=== PATIENT | male | born 1970 | race Caucasian/White ===

== ENCOUNTER 2020-07-10 13:24 | Emergency (ER) | payer OTHER, SELFPAY ==
[2020-07-10 13:45] VITALS: BP 148/102; PULSE 90; RESP 20; TEMP 36.2; O2SAT 100
--- NOTE | 2020-07-10 14:05 | ED.URI ---
HPI - URI/Sore Throat General Chief Complaint: Upper Respiratory Infection Stated Complaint: upper respiratory infection Time Seen by Provider: 07/10/20 13:55 Source: patient and RN notes reviewed Mode of arrival: ambulatory Limitations: no limitations History of Present Illness HPI Narrative: Patient presents today with a 6-day history of slight nonproductive cough, nasal congestion, left frontal headache. Believes he has a sinus infection. Denies fever or shortness of breath. No history of asthma or COPD. No known COVID-19 exposure. Patient does smoke. States symptoms are not worsening or improving. States he does wake up in the middle of the night multiple times due to headache and facial pain. He has been taking Robitussin-DM, Claritin, Sudafed, and Tylenol with mild relief. MD elicited complaint: nasal congestion and sinus pain Related Data Allergies Allergy/AdvReac Type Severity Reaction Status Date / Time No Known Allergies Allergy Mild Verified 06/05/19 10:09 Review of Systems Review of Systems: Narrative: CONSTITUTIONAL: Denies body aches, fever, chills, or sweats. EYES: Denies visual changes, redness, or discharge. ENT: Denies rhinorrhea, sore throat, or otalgia.+ Nasal congestion, sinus pressure CARDIOVASCULAR: Denies chest pain, palpitations, or edema. RESPIRATORY: Denies dyspnea.+ Cough GASTROINTESTINAL: Denies abdominal pain, nausea, vomiting, or diarrhea. GENITOURINARY: Denies dysuria or hematuria. SKIN: Denies rash, itching, or wounds. MUSCULOSKELETAL: Denies back pain, joint pain, or myalgia. NEUROLOGIC: Denies numbness, tingling, or weakness. + Headache PSYCH: Denies depression or anxiety. [facility] Past Medical History Medical History Arthritis Carpal tunnel syndrome Surgical History Surgical History History of carpal tunnel surgery of left wrist History of carpal tunnel surgery of right wrist History of repair of left rotator cuff Family History Family History Father Acute myocardial infarction Mother Carcinoma of colon Social History Social History Smoking packs per day: 1 Smoking cigarettes per day: 20.0 Smoking status: Current every day smoker Alcohol intake: current Gender identity (if verbalized by the patient): Male Comments At time of signature, I have reviewed and agree with nursing past medical, surgical, social and family history unless otherwise noted. Please see nursing chart for further information. There is no relevant family history pertinent to the presenting complaint Exam Narrative: Exam Narrative: GENERAL: Well-appearing, well-nourished, and in no acute distress. HEAD: Normocephalic, atraumatic. EYES: EOMI. No redness or drainage. Conjunctivae normal. ENT: Mucous membranes pink and moist. Nares congested. Bilateral swollen and erythematous nasal turbinates with purulent discharge on the left side. Left maxillary sinus tenderness. TMs normal bilaterally. Throat normal. Uvula midline. NECK: Normal AROM. Supple. No lymphadenopathy. CHEST: No respiratory distress. Clear to auscultation. HEART: Regular rate and rhythm. No murmur appreciated. Normal peripheral pulses. EXTREMITIES: Normal range of motion. No edema. SKIN: Warm, dry, no rash. Capillary refill normal. Normal skin turgor. NEURO: No focal deficits. Alert and oriented x3. Gait steady. PSYCH: Normal affect. No signs of depression or anxiety. Course Vital Signs Vital signs: Vital Signs Temperature 97.1 F L 07/10/20 13:45 Pulse Rate 90 07/10/20 13:45 Respiratory Rate 20 07/10/20 13:45 Blood Pressure 148/102 H 07/10/20 13:45 Pulse Oximetry 100 07/10/20 13:45 Temperature 97.1 F L 07/10/20 13:45 Pulse Rate 90 07/10/20 13:45 Respira
== END 2020-07-10 14:10 | disposition home or self-care (01) ==
PROVIDERS: Emergency Provider Nurse Practitioner; PCP Internal Medicine
DX: J01.90 Acute sinusitis, unspecified (principal); Z20.822 Contact with and (suspected) exposure to COVID-19; F17.210 Nicotine dependence, cigarettes, uncomplicated; M19.90 Unspecified osteoarthritis, unspecified site
CPT/HCPCS: 87426; 99213; C9803; G0463

== ENCOUNTER 2022-03-15 11:49 | Emergency (ER) | payer OTHER, SELFPAY ==
--- NOTE | ~2022-03-15 | XR_ITS ---
EXAMINATION: XR chest 2V 03/15/2022 13:00 INDICATION: Cough. Post Covid. PROCEDURE: 2 view chest COMPARISON: 06/02/2019 FINDINGS: The lungs are clear. The cardiomediastinal silhouette is within normal limits. There are no pleural effusions. There is no pneumothorax suspected. IMPRESSION: 1: NO ACUTE CARDIOPULMONARY DISEASE. Reviewed, dictated and finalized at location A.
[2022-03-15 12:03] VITALS: BP 135/93; PULSE 90; RESP 20; TEMP 37.2; O2SAT 99
--- NOTE | 2022-03-15 12:44 | ED.URI ---
HPI - URI/Sore Throat General Chief Complaint: Upper Respiratory Infection Stated Complaint: Cough,Fatigue,Shortness of Breath Time Seen by Provider: 03/15/22 12:44 Source: patient, RN notes reviewed and old records reviewed Mode of arrival: ambulatory Limitations: no limitations History of Present Illness HPI Narrative: 52-year-old male who presents to [facility] with complaints of shortness of breath, cough, and fatigue post COVID. Patient reports that he tested positive for COVID on 03/09/2022 and he received prescription for Paxlovid which he completed. He reports that cough is keeping him up at night and he feels some shortness of breath and remains fatigued post COVID. Patient is daily tobacco user for over 20 years.usually pack per day which patinet has decreased since being ill. Patient denies any fevers, chills or body aches at this time has not taken any OTC cough medications. MD elicited complaint: cough and other (shortness of breath and fatigue) Pertinent past history: other (tobacco abuse, COVID 03/09/2022) Pain scale (0-10): 4 Related Data Allergies Allergy/AdvReac Type Severity Reaction Status Date / Time No Known Allergies Allergy Mild Verified 03/15/22 19:00 Review of Systems Review of Systems: CONSTITUTIONAL: Denies fever, chills, or sweats. EYES: Denies visual changes, redness, or discharge. ENT: Positive for rhinorrhea, congestion, sore throat, or otalgia. CARDIOVASCULAR: Denies chest pain, palpitations, or edema. RESPIRATORY: Positive cough or dyspnea. upper chest discomfort with cough GASTROINTESTINAL: Denies abdominal pain, nausea, vomiting, or diarrhea. GENITOURINARY: Denies dysuria or hematuria. SKIN: Denies rash or itching. MUSCULOSKELETAL: Denies back pain, joint pain, or myalgia. NEUROLOGIC: Denies headache, numbness, or weakness. PSYCHIATRIC: Denies anxiety or depression. All systems reviewed & are unremarkable except as noted in HPI and below PMFSH Past Medical History Medical History (Updated 03/18/22 @ 15:03 by Makayla Garcia NP) Arthritis Carpal tunnel syndrome COVID-19 03/09/2022 History of sinus problem Surgical History Surgical History (Updated 03/18/22 @ 15:04 by Makayla Garcia NP) H/O repair of right rotator cuff History of carpal tunnel surgery of left wrist History of carpal tunnel surgery of right wrist History of repair of left rotator cuff Family History Family History Father Acute myocardial infarction Mother Carcinoma of colon Social History Social History Smoking packs per day: 1 Smoking cigarettes per day: 20.0 Smoking status: Current every day smoker Alcohol intake: current Gender identity (if verbalized by the patient): Male Comments At time of signature, agree with nursing past medical, surgical, social and family history. There is no relevant family history pertinent to the presenting complaint Exam Narrative: GENERAL: Well-appearing, well-nourished, and in no acute distress. HEAD: Normocephalic, atraumatic. EYES: PERRLA and EOMI. ENT: Nares red with clear rhinorrhea no epistaxis. Mucous membranes moist.TM's normal with good light reflex, throat pink with no lesions or exudates, post nasal drainage noted NECK: Supple.no lymphadenopathy CHEST: Clear to auscultation. No respiratory distress.SAO2 99% on room air, harsh cough HEART: Regular rate and rhythm. No murmur heard. Normal peripheral pulses. ABDOMEN: Soft, nontender, nondistended, normal active bowel sounds. EXTREMITIES: Normal range of motion. No edema. SKIN: Warm, dry, no rash. NEURO: No focal deficits. Alert and oriented x3. Course Course Level of Care: Express Care Visit Vital Signs Vital signs: Vital Signs Temperature 37.2 C 03/15/22 12:03 Pulse Rate 90 03/15/22 12:03 Respiratory Rate 20 03/15/22 12:03 Blood Pressure 135/93 H 03/15/22 12:03 Pulse O
== END 2022-03-15 13:40 | disposition home or self-care (01) ==
PROVIDERS: Emergency Provider Registered Nurse; PCP Internal Medicine
DX: R05.1 Acute cough (principal); F17.210 Nicotine dependence, cigarettes, uncomplicated; Z86.16 Personal history of COVID-19
CPT/HCPCS: 71046; 99213; G0463

== ENCOUNTER 2023-04-20 15:05 | Outpatient (CLI) | payer OTHER, SELFPAY ==
[2023-04-20 18:50] LABS: Basophils Percent Auto 0.3 % (0.2-1.2); Eosinophils Absolute Auto 0.2 K/mm3 (0-0.3); Eosinophils Percent Auto 1.5 % (0-4.4); Hematocrit 44.6 % (42.0-52.0); Hemoglobin 14.5 g/dL (14.0-18.0); Immature Granulocyte Absolute 0.04 K/mm3 (0.00-0.031); Immature Granulocyte Percent A 0.3 % (0-0.5); Lymphocytes Absolute Auto 2.12 K/mm3 (0.9-3.2); Mean Corpuscular HGB Conc 32.5 g/dl (32-36); Mean Corpuscular Hemoglobin 31.1 pg (26-34); Mean Corpuscular Volume 95.7 fl (80-100); Mean Platelet Volume 9.6 fl (7.4-10.4); Monocytes Absolute Auto 0.8 K/mm3 (0.1-0.6); Monocytes Percent Auto 6.7 % (2.6-8.5); Neutrophils Absolute Auto 9.2 K/mm3 (1.3-6.7); Neutrophils Percent Auto 74.2 % (45.5-73.1); Platelet Count Result 271 k/mm3 (150-375); Red Blood Count 4.66 M/mm3 (4.6-6.20); White Blood Count 12.5 K/mm3 (4.5-10.0)
[2023-04-20 20:29] LABS: Alanine Aminotransferase 29 U/L (6-50); Albumin Level 4.4 g/dL (3.5-5.1); Alkaline Phosphatase 77 U/L (38-126); Anion Gap 6 mmol/L (8-16); Aspartate Amino Transferase 53 U/L (17-59); Bilirubin,Total 0.5 mg/dL (0.2-1.3); Blood Urea Nitrogen 20 mg/dL (9-20); Calcium 9.6 mg/dL (8.4-10.2); Carbon Dioxide 27 mmol/L (22-30); Chloride 104 mmol/L (98-107); Cholesterol 214 mg/dL (0-200); Estimated Glomerular Filt Rate > 60; Glucose 102 mg/dL (65-110); HDL Direct 39 mg/dL; Potassium 4.4 mmol/L (3.4-5.0); Sodium 137 mmol/L (137-145); Triglycerides 93 mg/dL (<150)
[2023-04-20 20:40] LABS: LDL Cholesterol Direct 136 mg/dL
[2023-04-20 20:59] LABS: Prostate Specific Antigen 0.4 ng/mL (< OR = 4.0)
== END 2023-04-20 15:06 | disposition home or self-care (01) ==
LOC: ANHGOSHLAB 15:07
PROVIDERS: PCP Internal Medicine; Visit Provider Nurse Practitioner
DX: Z13.220 Encounter for screening for lipoid disorders (principal); Z13.29 Encounter for screening for other suspected endocrine disorder; Z12.5 Encounter for screening for malignant neoplasm of prostate
CPT/HCPCS: 36415; 80053; 80061; 84153; 85025; G0103

== ENCOUNTER 2023-09-14 14:49 | Outpatient (CLI) | payer OTHER, SELFPAY ==
--- NOTE | ~2023-09-14 | XR_ITS ---
XR finger 2nd RT min 2V DATE: 09/14/2023 15:11 INDICATION: Dropped steel plate on finger 3 weeks ago TECHNIQUE: 4 views of second digit COMPARISON: None FINDINGS: No fracture or dislocation, periosteal reaction or bone destruction, joint space narrowing, erosive change, radiopaque soft tissue foreign body or subcutaneous emphysema. IMPRESSION: Negative Reviewed, dictated and finalized at location B. IMPRESSION: Negative
== END 2023-09-14 14:50 ==
PROVIDERS: PCP Internal Medicine; Visit Provider Nurse Practitioner
DX: M79.646 Pain in unspecified finger(s) (principal)
CPT/HCPCS: 73140

== ENCOUNTER 2023-12-01 09:44 | Outpatient (CLI) | payer OTHER, SELFPAY ==
[2023-12-01 20:00] LABS: Basophils Absolute Auto 0.1 K/mm3 (0.0-0.1); Basophils Percent Auto 0.3 % (0.2-1.2); Eosinophils Absolute Auto 0.4 K/mm3 (0-0.3); Eosinophils Percent Auto 2.5 % (0-4.4); Hematocrit 48.4 % (42.0-52.0); Hemoglobin 15.7 g/dL (14.0-18.0); Immature Granulocyte Absolute 0.04 K/mm3 (0.00-0.031); Immature Granulocyte Percent A 0.3 % (0-0.5); Lymphocytes Absolute Auto 3.06 K/mm3 (0.9-3.2); Lymphocytes Percent Auto 21.3 % (18.3-44.2); Mean Corpuscular HGB Conc 32.4 g/dl (32-36); Mean Corpuscular Hemoglobin 31.6 pg (26-34); Mean Corpuscular Volume 97.4 fl (80-100); Mean Platelet Volume 9.8 fl (7.4-10.4); Monocytes Percent Auto 6.8 % (2.6-8.5); Neutrophils Absolute Auto 9.9 K/mm3 (1.3-6.7); Neutrophils Percent Auto 68.8 % (45.5-73.1); Platelet Count Result 229 k/mm3 (150-375); Red Blood Count 4.97 M/mm3 (4.6-6.20); Red Cell Distribution Width 13.9 % (11.5-14.5); White Blood Count 14.4 K/mm3 (4.5-10.0)
[2023-12-02 00:14] LABS: Cholesterol 166 mg/dL (0-200); HDL Direct 36 mg/dL; Triglycerides 164 mg/dL (<150)
[2023-12-02 00:25] LABS: LDL Cholesterol Direct 106 mg/dL
== END 2023-12-01 09:45 | disposition home or self-care (01) ==
LOC: ANHGOSHLAB 09:45
PROVIDERS: PCP Nurse Practitioner; Visit Provider Nurse Practitioner
DX: D72.829 Elevated white blood cell count, unspecified (principal); E78.5 Hyperlipidemia, unspecified
CPT/HCPCS: 36415; 80061; 85025

== ENCOUNTER 2023-12-22 08:17 | Outpatient (CLI) | payer OTHER, SELFPAY ==
--- NOTE | ~2023-12-22 | CT_ITS ---
EXAMINATION:CT lung screening DATE: 12/22/2023 08:33 INDICATION: Personal history of nicotine dependence. 30 pack year history. TECHNIQUE: Computed tomography (CT) of the chest was performed without intravenous contrast. Automate d exposure control and iterative reconstruction technique were employed. The dose-length product (DLP ) was 132.25 mGy-cm. COMPARISON: None. FINDINGS: There is mild emphysema. There are are innumerable 1-2 mm nodules in the lungs with an uppe r lobe predominance, likely respiratory bronchiolitis. There is a 4 mm nodule in right lower lobe. Th ere is a 5 mm nodule in right lower lobe. There is a 3 mm nodule in left upper lobe. There is a 5 mm nodule in left lower lobe. No pleural effusion. The heart size is normal. There are coronary artery c alcifications. No pericardial effusion. There is mild bilateral gynecomastia. There is mild thoracic spondylosis. There is mild chronic anterior wedging of multiple vertebral bodies. IMPRESSION: 1. Lung-RADS category 2: Benign appearance or behavior. Continue annual screening with noncontrast lo w-dose chest CT in 12 months. Reviewed, dictated and finalized at location A. IMPRESSION: 1. Lung-RADS category 2: Benign appearance or behavior. Continue annual screeni ng with noncontrast low-dose chest CT in 12 months.
== END 2023-12-22 08:18 ==
PROVIDERS: PCP Nurse Practitioner; Visit Provider Nurse Practitioner
DX: Z12.2 Encounter for screening for malignant neoplasm of respiratory organs (principal); Z87.891 Personal history of nicotine dependence
CPT/HCPCS: 71271

== ENCOUNTER 2024-05-01 08:01 | Emergency (ER) | payer OTHER, SELFPAY ==
--- NOTE | 2024-05-01 08:09 | ED_ITS ---
HPI - URI/Sore Throat General Chief Complaint: Ear Stated Complaint: ear ache Time Seen by Provider: 05/01/24 08:09 Source: patient, RN notes reviewed and old records reviewed Mode of arrival: ambulatory Limitations: no limitations History of Present Illness HPI Narrative: 54-year-old male to Express Care with complaint of left ear discomfort, ringing, decreased hearing for 2 weeks. Patient states that he has to wear foam ear plugs and work and he believes it has caused wax buildup in his ear. Patient reports attempting to remove wax at home yesterday with debrox and Q- tips without success. Patient denies recent illness, sick symptoms, allergies. Patient resting comfortably in exam room in no acute distress. Related Data Home Medications Medication Instructions Recorded Confirmed naproxen 500 mg tablet 500 mg PO BID 05/01/24 05/01/24 varenicline 1 mg tablet 1 mg PO BID 05/01/24 05/01/24 Allergies Allergy/AdvReac Type Severity Reaction Status Date / Time No Known Allergies Allergy Mild Verified 05/01/24 08:13 Review of Systems Review of Systems: All systems reviewed & are unremarkable except as noted in HPI and below Constitutional: Constitutional: Reports no additional constitutional complaints Eyes: Eyes: Reports no additional eye complaints ENT: Reports as per HPI, Denies Normal hearing present ( left), Reports otalgia ( Left fullness) and Reports tinnitus ( left) Cardiovascular: Cardiovascular: Reports no additional cardiovascular complaints, Denies chest pain and Denies dyspnea Respiratory: Respiratory: Reports no additional respiratory complaints, Denies cough and Denies dyspnea Musculoskeletal: Musculoskeletal: Reports no additional musculoskeletal complaints Neurologic: Reports system reviewed and no additional complaints, except as documented Psychiatric: Psychiatric: Reports no additional psychiatric complaints [facility] Past Medical History Medical History Arthritis Carpal tunnel syndrome COVID-19 03/09/2022 Family history of colon cancer in mother History of sinus problem Surgical History Surgical History H/O repair of right rotator cuff History of carpal tunnel surgery of left wrist History of carpal tunnel surgery of right wrist History of repair of left rotator cuff Family History Family History Father Acute myocardial infarction Hypertension Heart disease Mother Carcinoma of colon Cancer Hypertension Cerebrovascular accident Sibling Diabetes mellitus Hypertension Social History Social History Social History: Caffeine-daily Smoking packs per day: 1 Smoking cigarettes per day: 20.0 Years smoked: 40 Smoking pack-years: 40.00 Smoking status: Former smoker Tobacco type: cigarettes Smoking end date: 12/08/23 Alcohol intake: current Drinks per week: 2 Alcohol use details: weekly Substance use: never Substance use type: does not use Lack of Transportation: No Lack of Food: Never True Current Housing: I Have Housing Concerned About Future Housing: No Difficulty Paying Gas/Electric Bills: No Difficulty Paying for Meds: No Currently Unemployed: No Education: High School Diploma/GED Difficulty w/ Childcare or Family Care: YES Living arrangements: with family Additional living arrangements comments: with sp Gender identity (if verbalized by the patient): Male Comments At the time of my signature, I reviewed and agree with the nursing past medical, surgical, social, and family history. There is no relevant family history pertinent to the patient complaint. Exam Const: General: cooperative, healthy appearing, comfortable, no acute distress, well developed, alert and well nourished Nutritional Appearance: well nourished Orientation/consciousness: patient oriented x3 Limitations: no limitations HENMT: Head: normal to inspection Ears: external ears normal and Abnormal EAC present cerumen impaction on the left and excessive cerumen on the right Face/Nose/Sinus: Normal external nose present, Normal nares present, normal facial exam, No erythema and No edema Face and sinus: normal facial exam, no erythema and no edema Mouth: Yes Normal oral and palatal mucosa present Eyes: General: appearance normal, both eyes and all related structures Neck: Neck: normal visual inspection, full ROM and no meningeal signs Chest: Chest palpation & inspection: normal inspection of the chest Resp: Effort & Inspection: normal respiratory effort and able to speak in complete sentences Cardio: Jugular venous distension: no JVD Rate: regular rate Back/Spine/Pelvis: Cervical Spine: cervical ROM normal Skin: General skin exam: normal color, no rashes or lesions noted and turgor normal Neuro: General: patient oriented x3, gait normal, moves all extremities and no meningeal signs Speech: normal speech Gait exam (Neuro): Normal gait present Extrem: General: normal to inspection, full ROM and capillary refill normal Psych: Appearance: grossly normal and well kempt Course Course Emergency Course: Some parts of this dictation were generated by voice recognition software and may contain typographical and/or grammatical inaccuracies. Level of Care: Express Care Visit Vital Signs Vital signs: Vital Signs Temperature 36.2 C L 05/01/24 08:16 Pulse Rate 69 05/01/24 08:16 Respiratory Rate 16 05/01/24 08:16 Blood Pressure 151/89 H 05/01/24 08:16 Pulse Oximetry 99 05/01/24 08:16 Oxygen Delivery Room Air 05/01/24 08:16 Temperature 36.2 C L 05/01/24 08:16 Pulse Rate 69 05/01/24 08:16 Respiratory Rate 16 05/01/24 08:16 Blood Pressure 151/89 H 05/01/24 08:16 Pulse Oximetry 99 05/01/24 08:16 Oxygen Delivery Room Air 05/01/24 08:16 reviewed Procedures Ear Wax Removal Both Ears: Ear Wax Removal Date: 05/01/24 Results: Re-examined: cerumen removed completely ( right ear) and some cerumen remains ( left ear) TM Examination: TM(s) intact, normal appearance ( right) and other ( unable to view left TM due to remaining impaction) Ear Canal Exam: atraumatic Complications: pain Technique: ear canal irrigated and ear canal curetted MDM - URI/Sore Throat MDM Narrative Medical decision making narrative: 54-year-old male to Express Care with complaint of left ear discomfort, ringing, decreased hearing for 2 weeks. Patient states that he has to wear foam ear plugs and work and he believes it has caused wax buildup in his ear. Patient reports attempting to remove wax at home yesterday with debrox and Q- tips without success. Patient denies recent illness, sick symptoms, allergies. Patient resting comfortably in exam room in no acute distress. earwax removal attempted with lighted curette and irrigation. Large amount of impacted wax removed from right ear without complication. Some wax removed from left ear however impaction still remains. Discussed at home treatment and follow-up recommendations with patient. Patient verbalized understanding. Patient is sitting comfortably in exam room nontoxic in appearance. Patient appropriate for outpatient treatment and follow-up. Discharge instructions reviewed with patient, as well as provided in writing per nursing staff. The instructions also include specific and strict return/GO TO THE ER as well as f/u information. All questions have been answered, and the patient deny any further questions with discharge and discharge plan. Some parts of this dictation were generated by voice recognition software and m ay contain typographical and/or grammatical inaccuracies. Differential Diagnosis Differential diagnosis: Likely upper respiratory infection, croup, otitis media, sinusitis, viral infection, bronchitis, influenza and pharyngitis Discharge Plan Discharge Clinical Impression: Impacted cerumen of left ear, Excessive cerumen in right ear canal Patient Disposition: Home, Self-Care Condition: Stable Instructions: [facility] (ED) Additional Instructions: use debrox in left ear per package instructions use prescription drops in right ear as directed please use attached referral information for ENT if needed for new or worsening symptoms please go directly to the emergency department Prescriptions: New ofloxacin 0.3 % drops 10 drp RIGHT EAR BID 14 Days Qty: 10 0RF No Action varenicline 1 mg tablet 1 mg PO BID naproxen 500 mg tablet 500 mg PO BID atorvastatin 10 mg tablet 10 mg PO QHS Qty: 90 0RF Rx Instructions: DUE FOR APPOINTMENT IN MAY Follow-up/Referrals: Kirill Rogers DO [Primary Care Provider] - Stand Alone Forms: Work/School Release IP
[2024-05-01 08:16] VITALS: BP 151/89; PULSE 69; RESP 16; TEMP 36.2; O2SAT 99
== END 2024-05-01 09:00 | disposition home or self-care (01) ==
PROVIDERS: Emergency Provider Nurse Practitioner Family; PCP Internal Medicine
DX: H61.23 Impacted cerumen, bilateral (principal); Z87.891 Personal history of nicotine dependence; M19.90 Unspecified osteoarthritis, unspecified site; Z86.16 Personal history of COVID-19
CPT/HCPCS: 69210; 99213; A9270; G0463

== ENCOUNTER 2024-05-07 02:36 | Day surgery (SDC) | payer OTHER, SELFPAY ==
[2024-04-27 15:47] VITALS: BMI 31.0
[2024-05-07 11:44] VITALS: BP 141/83; PULSE 82; RESP 18; TEMP 36.1; O2SAT 100
[2024-05-07] MEDS: LACTATED RINGERS 1,000 ML 150 ML IV CONT (11:51)
--- NOTE | 2024-05-07 12:20 | WPDANESEPPF ---
Anes - Initial Pre Proc Eval Procedure: Operation Date: 05/07/24 13:00 Proposed Procedures p Colonoscopy - Nick Rosenthal MD Date/Time: 05/07/24 12:20 Surgeon: Nick Rosenthal MD Pre Op Diagnosis: Family history malignant neoplasm of digestive org Patient Data Age: 54 Gender: M Height: 1.75 m Weight: 93 kg Last Vital Signs Temp 36.1 C L 05/07/24 11:44 Pulse 82 05/07/24 11:44 Resp 18 05/07/24 11:44 BP 141/83 H 05/07/24 11:44 Pulse Ox 100 05/07/24 11:44 O2 Del Method Room Air 05/07/24 11:44 Allergies Allergy/AdvReac Type Severity Reaction Status Date / Time No Known Allergies Allergy Mild Verified 05/07/24 11:41 Home Medications Medication Instructions Recorded Confirmed Type atorvastatin 10 mg tablet 10 mg PO QHS #90 tabs 02/28/24 05/07/24 Rx naproxen 500 mg tablet 500 mg PO BID 05/01/24 05/07/24 History ofloxacin 0.3 % ear drops 10 drp RIGHT EAR BID 14 days #10 mL 05/01/24 05/07/24 Rx Patient hx anesthesia problems: none Family hx anesthesia problems: none Results Review: All pre-operative results and documents have been reviewed as part of the pre-operative evaluation. [facility] Past Medical History Medical History Arthritis Carpal tunnel syndrome COVID-19 03/09/2022 Family history of colon cancer in mother History of sinus problem Hyperlipidemia Surgical History Surgical History H/O repair of right rotator cuff History of carpal tunnel surgery of left wrist History of carpal tunnel surgery of right wrist History of repair of left rotator cuff Family History Family History Father Acute myocardial infarction Hypertension Heart disease Mother Carcinoma of colon Cancer Hypertension Cerebrovascular accident Sibling Diabetes mellitus Hypertension Social History Social History Social History: Caffeine-daily Smoking packs per day: 1 Smoking cigarettes per day: 20.0 Years smoked: 40 Smoking pack-years: 40.00 Smoking status: Former smoker Tobacco type: cigarettes Smoking end date: 12/08/23 Alcohol intake: current Drinks per week: 2 Alcohol use details: weekly Substance use: never Substance use type: does not use Lack of Transportation: No Lack of Food: Never True Current Housing: I Have Housing Concerned About Future Housing: No Difficulty Paying Gas/Electric Bills: No Difficulty Paying for Meds: No Currently Unemployed: No Education: High School Diploma/GED Difficulty w/ Childcare or Family Care: YES Living arrangements: with family Additional living arrangements comments: with sp Gender identity (if verbalized by the patient): Male Anes - Eval Final PreProcedure Day of Procedure 05/07/24 12:20 Patient weight: obese Heart: regular rate and rhythm Lungs: clear to auscultation Airway: Mallampati scale class II Neurological: alert and oriented Last oral intake: >/= 8 hours ASA classification: II Emergent: no Anesthetic plan: proceed Anesthesia type and monitoring: general GIVS Results Review: All pre-operative results and documents have been reviewed as part of the pre-operative evaluation. Informed Consent: The patient's anesthetic plan and its attendant risks and benefits were discussed with the patient/family/POA. Questions were solicited and answers provided to the satisfaction of the patient/family/POA.
--- NOTE | 2024-05-07 12:21 | PM.HPGS ---
History of Present Illness History of Present Illness Consent: Risks, benefits, and alternatives have been discussed and questions answered. Patient agrees to proceed with procedure. Chief complaint: Family history malignant neoplasm of digestive org Narrative: Zen Viramontes is a 54 year old male here for first colonoscopy, mother had colon cancer Review of Systems Review of Systems: All systems reviewed & are unremarkable except as noted in HPI and below PMFSH Past Medical History Medical History Arthritis Carpal tunnel syndrome COVID-19 03/09/2022 Family history of colon cancer in mother History of sinus problem Hyperlipidemia Surgical History Surgical History H/O repair of right rotator cuff History of carpal tunnel surgery of left wrist History of carpal tunnel surgery of right wrist History of repair of left rotator cuff Family History Family History Father Acute myocardial infarction Hypertension Heart disease Mother Carcinoma of colon Cancer Hypertension Cerebrovascular accident Sibling Diabetes mellitus Hypertension Social History Social History Social History: Caffeine-daily Smoking packs per day: 1 Smoking cigarettes per day: 20.0 Years smoked: 40 Smoking pack-years: 40.00 Smoking status: Former smoker Tobacco type: cigarettes Smoking end date: 12/08/23 Alcohol intake: current Drinks per week: 2 Alcohol use details: weekly Substance use: never Substance use type: does not use Lack of Transportation: No Lack of Food: Never True Current Housing: I Have Housing Concerned About Future Housing: No Difficulty Paying Gas/Electric Bills: No Difficulty Paying for Meds: No Currently Unemployed: No Education: High School Diploma/GED Difficulty w/ Childcare or Family Care: YES Living arrangements: with family Additional living arrangements comments: with sp Gender identity (if verbalized by the patient): Male Meds Home Medications and Allergies Home Medications Medication Instructions Recorded Confirmed Type atorvastatin 10 mg tablet 10 mg PO QHS #90 tabs 02/28/24 05/07/24 Rx naproxen 500 mg tablet 500 mg PO BID 05/01/24 05/07/24 History ofloxacin 0.3 % ear drops 10 drp RIGHT EAR BID 14 days #10 mL 05/01/24 05/07/24 Rx Allergies Allergy/AdvReac Type Severity Reaction Status Date / Time No Known Allergies Allergy Mild Verified 05/07/24 11:41 Vital Signs Vital Signs - 24 hr 05/07/24 11:44 Temperature 97 F L Pulse Rate 82 Respiratory Rate 18 Blood Pressure 141/83 H Pulse Oximetry 100 Oxygen Delivery Room Air Exam Const: General: comfortable and no acute distress HENMT: Face/Nose/Sinus: Normal nares present Eyes: General: appearance normal, both eyes and all related structures Neck: Neck: no JVD Resp: Auscultation: clear to auscultation bilaterally Cardio: Rate: regular rate Rhythm: regular rhythm GI: Inspection: non-distended GI Palp: Yes Soft to palpation Skin: General skin exam: normal color Neuro: General: gait normal Speech: normal speech Extrem: General: normal to inspection Psych: Mental Status: mental status grossly normal Assessment and Plan Assessment and plan (1) Family history of colon cancer in mother: Code(s): Z80.0 - Family history of malignant neoplasm of digestive organs Status: Acute Assessment and Plan: colonoscopy
[2024-05-07 12:35] VITALS: BP 108/71; PULSE 79; RESP 16; O2SAT 95
[2024-05-07 12:45] VITALS: BP 106/72; PULSE 64; RESP 15; O2SAT 97
[2024-05-07 12:55] VITALS: BP 125/83; PULSE 70; RESP 19; O2SAT 100
== END 2024-05-07 13:05 | disposition home or self-care (01) ==
PROVIDERS: PCP Internal Medicine; Referring Provider Nurse Practitioner; Visit Provider Internal Medicine Gastroenterology
PROC: 0DJD8ZZ Inspection of Lower Intestinal Tract, Via Natural or Artificial Opening Endoscopic (ICD-10-PCS; CPT 45378; principal; 2024-05-07 13:00)
DX: Z12.11 Encounter for screening for malignant neoplasm of colon (principal); Z80.0 Family history of malignant neoplasm of digestive organs; E78.5 Hyperlipidemia, unspecified; Z87.891 Personal history of nicotine dependence; E66.9 Obesity, unspecified; Z68.30 Body mass index [BMI] 30.0-30.9, adult
CPT/HCPCS: 45378; J2704; J7120

== ENCOUNTER 2024-06-18 17:29 | Emergency (ER) | payer OTHER, SELFPAY ==
[2024-06-18 17:45] VITALS: BP 135/88; PULSE 94; RESP 16; TEMP 36.8; O2SAT 98
--- NOTE | 2024-06-18 18:03 | ED.URI ---
HPI - URI/Sore Throat General Chief Complaint: Upper Respiratory Infection Stated Complaint: cough/runny nose Time Seen by Provider: 06/18/24 18:03 Source: patient Mode of arrival: ambulatory Limitations: no limitations History of Present Illness HPI Narrative: 54-year-old male presented for complaint of nasal congestion and cough for 4 days. States he got no sleep last night due to the coughing. Coughing also induced vomiting yesterday. Shortness of breath, wheezing, nausea vomiting diarrhea lethargy. Plans to try garlic/honey/onion remedy. Former smoker. Related Data Home Medications ?Medication ?Instructions ?Recorded ?Confirmed ?Last Taken ?Type naproxen 500 mg tablet 500 mg PO BID 05/01/24 05/07/24 05/05/24 History Allergies Allergy/AdvReac Type Severity Reaction Status Date / Time No Known Allergies Allergy Mild Verified 06/18/24 17:43 Review of Systems Review of Systems: per HPI All systems reviewed & are unremarkable except as noted in HPI and below PMFSH Past Medical History Medical History Family history of colon cancer in mother Hyperlipidemia COVID-19 03/09/2022 History of sinus problem Arthritis Carpal tunnel syndrome Surgical History Surgical History H/O repair of right rotator cuff History of repair of left rotator cuff History of carpal tunnel surgery of right wrist History of carpal tunnel surgery of left wrist Family History Family History Father Acute myocardial infarction Hypertension Heart disease Mother Carcinoma of colon Cancer Hypertension Cerebrovascular accident Sibling Diabetes mellitus Hypertension Social History Social History Social History: Caffeine-daily Smoking packs per day: 1 Smoking cigarettes per day: 20.0 Years smoked: 40 Smoking pack-years: 40.00 Smoking status: Former smoker Tobacco type: cigarettes Smoking end date: 12/08/23 Alcohol intake: current Drinks per week: 2 Alcohol use details: weekly Substance use: never Substance use type: does not use Lack of Transportation: No Lack of Food: Never True Current Housing: I Have Housing Concerned About Future Housing: No Difficulty Paying Gas/Electric Bills: No Difficulty Paying for Meds: No Currently Unemployed: No Education: High School Diploma/GED Difficulty w/ Childcare or Family Care: YES Living arrangements: with family Additional living arrangements comments: with sp Gender identity (if verbalized by the patient): Male Comments At time of signature, I have reviewed and agree with nursing past medical, surgical, social and family history unless otherwise noted. Please see nursing chart for further information. There is no relevant family history pertinent to the presenting complaint Exam Narrative: GENERAL: Well-appearing, in no acute distress. EYES: EOMI. No redness or drainage. Conjunctivae normal. ENT: Mucous membranes pink and moist. rhinorrhea. TMs normal bilaterally. Throat normal. Uvula midline. NECK: Normal AROM. Supple. CHEST: No respiratory distress. Lungs clear to all harris. HEART: Regular rate and rhythm. No murmur appreciated. SKIN: Warm, dry, Capillary refill normal. Normal skin turgor. NEURO: Alert and oriented x3. Gait steady. PSYCH: Normal affect. Course Course Emergency Course: Patient is aware of diagnosis, understands and agrees to treatment plan. Anticipatory guidance given. Patient agrees to follow-up as directed and is aware of reasons to seek care at the emergency department. Portions of this record may have been created with voice recognition software Level of Care: Express Care Visit Vital Signs Vital signs: Vital Signs Temperature 98.2 F 06/18/24 17:45 Pulse Rate 94 06/18/24 17:45 Respiratory Rate 16 06/18/24 17:45 Blood Pressure 135/88 06/18/24 17:45 Pulse Oximetry 98 06/18/24 17:45 Oxygen Delivery Room Air 06/18/24 17:45 Temperature 98.2 F 06/18/24 17:45 Pulse Rate 94 06/18/24 17:45 Respiratory Rate 16 06/18/24 17:45 Blood Pressure 135/88 06/18/24 17:45 Pulse Oximetry 98 06/18/24 17:45 Oxygen Delivery Room Air 06/18/24 17:45 MDM - URI/Sore Throat MDM Narrative Medical decision making narrative: Discussed physical exam findings. Advised supportive measures and signs/symptoms to go to the ER. Pt is appropriate for outpt treatment and f/u. Differential Diagnosis Differential diagnosis: Likely upper respiratory infection, otitis media, sinusitis, viral infection, bronchitis, influenza and other Discharge Plan Discharge Clinical Impression: Acute bronchitis Qualifiers: Bronchitis organism: unspecified organism Qualified Code(s): J20.9 - Acute bronchitis, unspecified Patient Disposition: Home, Self-Care Condition: Stable Instructions: Antibiotic Form, Acute Bronchitis (ED) Additional Instructions: Acute bronchitis can be contagious because it is usually caused by infection with a virus or bacteria. It is usually for a few days but you can be contagious for up to one week. Avoid crowds until you do not have a fever and symptoms are improved Take medication as directed Recommendations: Flonase spray and Zyrtec (or Claritin/Irais) Prescribed Cough syrup may cause drowsiness; avoid driving or take it at night time. Tylenol 1000mg every 8 hours as needed for pain Symptomatic treatment includes: rest, fluids, and increase humidity of the air at home. If no improvement or symptoms worsen after 3-5 days of the above treatments, you can start the antibiotic Follow up with your primary care provider as needed in 1 week Go to the ER for worsening symptoms or concerns Patient Language: Chinese Prescriptions: New benzonatate 200 mg capsule 200 mg PO TID PRN (Reason: cough) Qty: 20 0RF codeine-guaifenesin [Guaifenesin AC] 10-100 mg/5 mL liquid 10 ml PO Q8H PRN (Reason: cough) Qty: 120 0RF prednisone 50 mg tablet 50 mg PO DAILY Qty: 5 0RF amoxicillin-pot clavulanate 875-125 mg tablet 1 tablet PO Q12H 7 Days Qty: 14 0RF No Action naproxen 500 mg tablet 500 mg PO BID ofloxacin 0.3 % drops 10 drp RIGHT EAR BID 14 Days Qty: 10 0RF atorvastatin 10 mg tablet 10 mg PO QHS Qty: 90 0RF Rx Instructions: DUE FOR APPOINTMENT IN MAY Follow-up/Referrals: Kirill Rogers DO [Primary Care Provider] -
[2024-06-18 18:06] LABS: EDCOVIDSCREEN Negative (Negative); EDINFLUASCREEN Negative (Negative); EDINFLUBSCREEN Negative (Negative)
== END 2024-06-18 18:15 | disposition home or self-care (01) ==
PROVIDERS: Emergency Provider Nurse Practitioner Family; PCP Internal Medicine
DX: J20.9 Acute bronchitis, unspecified (principal); E78.5 Hyperlipidemia, unspecified; Z87.891 Personal history of nicotine dependence; Z20.822 Contact with and (suspected) exposure to COVID-19
CPT/HCPCS: 87426; 87804; 99213; G0463

== ENCOUNTER 2024-07-23 08:19 | Emergency (ER) | payer OTHER, SELFPAY ==
--- OUTSIDE RECORDS SUMMARY | 2024-07-23 08:28 | XMS_ITS | Data Portability ---
Author Organization [facility], Main Office Address [address] [place] [address] Assessment No assessment recorded. Plan of Treatment Reminders Order Date Submit Date Provider Last Modified By Organization Details Last Modified Time Details Appointments None recorded. Lab None recorded. Referral None recorded. Procedures cerumen removal (PROC) 024 024 Not available 4 09:25:04 Surgeries None recorded. Imaging None recorded. Medication Orders None recorded. Patient TargetsNo targets recorded. Patient InstructionsNo instructions recorded. Reason for Referral None Reported. Problems Name Problem SNOMED Code Status Onset Date Resolution Date Notes Provider Name and Address Organization Details Recorded Time Impacted cerumen in left ear 071760041190336 1 Active 2023 Nathalia Owens, DELICATESSEN DEPARTMENT MANAGER [address], [place], [address] [facility] 4 15:34:49 Problem Notes None recorded. Medical Equipment None Reported. Allergies No known drug allergies Medications Name Sig Start Date Stop Date Status Note LastModified by Organization Details LastModified Time atorvastat in 10 mg tablet TAKE 1 TABLET BY MOUTH EVERY DAY AT BEDTIME active Not Available Not Available No t Available azithromyc in 250 mg tablet FOLLOW PACKAGE DIRECTION S 05/03 completed Not Available Not Available Not Available ofloxacin 0.3 % ear drops INSTILL 10 DROPPERFU L TO RIGHT EAR TWICE DAILY FOR 14 DAYS active Not Available Not Available No t Available fluticason e propionate 50 mcg/actuat ion nasal spray,susp ension SHAKE LIQUID AND USE 1 TO 2 SPRAYS IN EACH NOSTRIL TWICE DAILY active Not Available Not Available No t Available naproxen 500 mg tablet TAKE 1 TABLET BY MOUTH TWICE DAILY active Not Available Not Available No t Available Debrox active TWICE A DAY Not Available Not Available Not Available vareniclin e tartrate 1 mg tablet TAKE 1 TABLET BY MOUTH TWICE DAILY active Not Available Not Available No t Available vareniclin e tartrate 0.5 mg (11)-1 mg (42) tablets in a dose pack FOLLOW PACKAGE DIRECTION S active Not Available Not Available No t Available Vitals Date Recorded Body weight Body mass index (BMI) Body height Body temperature Provider Name and Address Organization Details Last Updated DateTime 05/03/2024 03569.36 g 29.2 kg/m2 182.88 cm 98.1 [degF] Nathalia Gaytan RN [facility] [employer] 05/03/2024 15:09:30 Social History Question Answer Notes LastModified by Organizat ion Details LastModified Time Tobacco Smoking Status Former Smoker Nathalia Gaytan RN null, [facility] [employer] 05/03/2024 15:07:29 What Is Your Level Of Alcohol Consumption? Occasional Information not available 05/03/2024 When Did You Quit Smoking? 1-5yearssinbertoa shantanu Information not available 05/03/2024 How Many Years Have You Smoked Tobacco? 40 Information not available 05/03/2024 Sex: Unknown Functional Status None recorded. Mental Status None recorded. Family History Nothing Reported Notes:NO ENT Medical History Condition Response NO SIGNIFICANT PAST MEDICAL HISTORY Y Past Encounters Encounter ID Performer Location Encounter Start Date Encounter Closed Date Diagnosis/Indication Diagnosis SNOMED-CT Code Diagnosis ICD10 Code Diagnosis Note [id number] VALERIE Brown [facility] [place] [address] [place] [address] 05/03/2024 14:38:40 05/03/2024 15:35:51 Impacted cerumen in left ear 4169288876 [id number] H61.22 cerumen impaction of the left ear successful ly removed with lavage. Health Concerns Section Related Observation LastModified by Organization Detai ls LastModified Time None Recorded Concern Status LastModified by Organization Details LastModified Time None Recorded Advance Directives Directive None Recorded Payers None recorded. Notes Date Note Type Note Provider Name and Address Organization Details Recorded Time 05/03/2024 text/html THIS PATIENT HAS NO SIGNIFICANT PAST MEDICAL HISTORY. HE PRESENTS TO THE OFFICE WITH A COMPLAINT OF LEFT OTALGIA AND TINNITUS ONSET APPROXIMATELY ONE-WEEK AGO. HE HAS PRESENTED TO AN URGENT CARE AND HIS PRIMARY WHO HAVE HAD FAILED ATTEMPTS AT REMOVING CERUMEN TO THE AFFECTED EAR. HE STATES THAT HE HAS BEEN USING DEBROX DAILY. Nathalia Owens, DELICATESSEN DEPARTMENT MANAGER [address] [facility], [place], [address], [place] [facility] 05/03/2024 15:35:09
--- OUTSIDE RECORDS SUMMARY | 2024-07-23 08:28 | XMS_ITS | Clinical Summary ---
Author Organization [facility] Address [address] [place] [address] Care Team Providers Care Engineering Analyst Name Role Phone Kirill Rogers DO Primary Care Provider [phone]- [phone] Allergies No known active allergies Medications nabumetone (RELAFEN) 500 mg tabletIndicatio ns:arthritis Take 500 mg by mouth every morning Active zinc 50 mg tabletIndicatio ns:supplement Take 1 tablet by mouth every morning Active MULTIVITAMIN ORALIndications :supplement Take 1 tablet by mouth every morning Active ascorbic acid (ascorbic acid with yogi hips) 500 mg tablet,chewable Indications:sup plement Take 500 mg by mouth every morning Active oxyCODONE (ROXICODONE) 5 mg immediate release tabletIndicatio ns:Pain TAKE 1-2 TABLETS EVERY 4-6 HOURS NEEDED FOR PAIN 40 tablet 02/22/2020 Active hydrOXYzine (VISTARIL) 50 mg capsule Take 1 capsule (50 mg total) by mouth 3 (three) times a day as needed for itching 30 capsule 02/22/2020 Active Active Problems Problem Noted Date Diagnosed Date Impingement syndrome of right shoulder 0 Overview (01/03/2020): Added automatically from request for surgery [id number] Complete tear of left rotator cuff 12/07/2018 Overview (12/07/2018): Added automatically from request for surgery [id number] Surgical History Surgery Date Site/Laterality Comments CARPAL TUNNEL RELEASE 1989' Bilateral SHOULDER SURGERY 06/27/2018 - 06/26/2019 Left Medical History Medical History Date Comments Arthritis wrists bilateral Social History Tobacco Use Types Packs/Day Years Used Date Smoking Tobacco: Every Day Cigarettes 1 39.1 Started: 1985 Smokeless Tobacco: Never Alcohol Use Standard Drinks/Week Comments Yes 7 (1 standard drink = 0.6 oz pur e alcohol) Personal Safety Answer Date Recorded Getting School Help Needed Not on file 08/15 Sex and Gender Information Value Date Recorded Sex Assigned at Not on file Legal Sex Male 2:59 PM CDT Gender Identity Not on file Sexual Orientation Not on file Obstetrics History Last Filed Vital Signs Vital Sign Reading Time Taken Comments Blood Pressure 118/79 02/18/2020 10:00 AM CDT Pulse 62 02/18/2020 10:10 AM CDT Temperature 36.1 ??C (97 ??F) 02/18/2020 8:47 AM CDT Respiratory Rate 20 02/18/2020 10:1 0 AM CDT Oxygen Saturation 95% 02/18/2020 10: 10 AM CDT Inhaled Oxygen Concentration - - Weight 87.4 kg (192 lb 11.2 oz) 02/18/2020 5:38 AM CDT Height 182.9 cm (6') 02/18/2020 5:38 AM CDT Body Mass Index 26.13 02/18/2020 5:38 AM CDT Plan of Treatment Not on file Medical Devices Implanted Type Area Immunology Specialist Device Identifier Shelf Expiration Date Model / Serial / Lot [employer] Ar-1927bct Corkscrew Suturetape 5.5mm 14.7mm Bioabsorbable Full Thread 1.3mm - S00 - [id number] Implanted:Qty: 1 on 01/01/2019 by Swapnil Rivero MD at [facility] [place] Left: Shoulder [employer] 12/25/2019 AR-1927BCT / 00 / [id number] [employer] Ar-2267 Fish Peddler Large Eyelet Pectoralis Button Fixation Latex Free - S00 - [id number] Implanted:Qty: 1 on 01/01/2019 by Swapnil Rivero MD at [facility] [place] Left: Shoulder [employer] 09/25/2023 AR-2267 / 00 / [id number] [employer] Ar-2324 Bcm Swivelock 4.75mm 24.5mm Self Punch Vent Shoulder [place] Suture - S00 - [id number] Implanted:Qty: 1 on 01/01/2019 by Swapnil Rivero MD at [facility] [place] Left: Shoulder [employer] 04/26/2020 AR-2324BCM / 00 / [id number] [employer] Ar-2324 Bcm Swivelock 4.75mm 24.5mm Self Punch Vent Shoulder [place] Suture - S00 - [id number] Implanted:Qty: 1 on 01/01/2019 by Swapnil Rivero MD at [facility] [place] Left: Shoulder [employer] 07/27/2020 AR-2324BCM / 00 / [id number] [employer] Ar-2267 Fish Peddler Large Eyelet Pectoralis Button Fixation Latex Free - S000 - [id number] Implanted:Qty: 1 on 01/01/2019 by Swapnil Rivero MD at [facility] Left: Shoulder [employer] 09/25/2023 AR-2267 / 000 / [id number] [employer] Ar-2324 Bcm Swivelock 4.75mm 24.5mm Self Punch Vent Shoulder [place] Suture - [id number] Implanted:Qty: 1 on 02/18/2020 by Swapnil Rivero MD at [facility] [place] Right: Shoulder [employer] 09/25/2023 AR-2324BCM / / [id number] Insurance [facility] Care Teams Engineering Analyst Relationship Specialty Start Date End Date Kirill Rogers DO PCP - General Internal Medicine 11/06/18
--- OUTSIDE RECORDS SUMMARY | 2024-07-23 08:28 | XMS_ITS | Referral Summary ---
Author Organization [facility] Address [address] [place] [address] Care Team Providers Care Process Area Supervisor Name Role Phone Kirill Rogers DO Primary Care Provider +1- [phone] Allergies No known active allergies Medications nabumetone [...] (01/03/2020): Added automatically from request for surgery [id number] Complete tear of left rotator cuff 12/07/2018 Overview (12/07/2018): Added automatically from request for surgery [id number] Social History Tobacco Use Types Packs/Day Years [...] on file Sexual Orientation Not on file Last Filed Vital Signs Vital Sign Reading [...] on file Medical Devices Implanted Type Area Sales Director Device Identifier Shelf Expiration Date Model / Serial / Lot [employer] Ar-1927bct Corkscrew Suturetape 5.5mm 14.7mm Bioabsorbable Full Thread 1.3mm - S00 - [id number] Implanted:Qty: 1 on 01/01/2019 by Swapnil Rivero MD at [facility] [place] Left: Shoulder [employer] 12/25/2019 AR-1927BCT / 00 / [id number] [employer] Ar-2267 Sap Enterprise Portal Consultant Large Eyelet Pectoralis Button Fixation Latex Free - S00 - [id number] Implanted:Qty: 1 on 01/01/2019 by Swapnil Rivero MD at [facility] Left: Shoulder [employer] 09/25/2023 AR-2267 / 00 / [id number] [employer] Ar-2324 Bcm Swivelock 4.75mm 24.5mm Self Punch Vent Shoulder [place] Suture - S00 - [id number] Implanted:Qty: 1 on 01/01/2019 by Swapnil Rivero MD at [facility] Left: Shoulder [employer] 04/26/2020 AR-2324BCM / 00 / [id number] [employer] Ar-2324 Bcm Swivelock 4.75mm 24.5mm Self Punch Vent Shoulder [place] Suture - S00 - [id number] Implanted:Qty: 1 on 01/01/2019 by Swapnil Rivero MD at [facility] Left: Shoulder [employer] 07/27/2020 AR-2324BCM / 00 / [id number] [employer] Ar-2267 Sap [employer] Portal Consultant Large Eyelet Pectoralis Button Fixation Latex Free - S000 - [id number] Implanted:Qty: 1 on 01/01/2019 by Swapnil Rivero MD at [facility] Left: Shoulder [employer] 09/25/2023 AR-2267 / 000 / [id number] [employer] Ar-2324 Bcm Swivelock 4.75mm 24.5mm Self Punch Vent Shoulder [place] Suture - [id number] Implanted:Qty: 1 on 02/18/2020 by Swapnil Rivero MD at [facility] Right: Shoulder [employer] 09/25/2023 AR-2324BCM / / [id number] Insurance [facility] CMR Care Teams Process Area Supervisor Relationship Specialty Start Date End Date Kirill Rogers DO PCP - General Internal Medicine 11/06/18
[2024-07-23 08:29] VITALS: BP 138/88; PULSE 100; RESP 18; TEMP 36.5; O2SAT 100
--- NOTE | 2024-07-23 08:32 | ED_ITS ---
HPI - URI/Sore Throat General Chief Complaint: Upper Respiratory Infection Stated Complaint: Runn nose, cough Time Seen by Provider: 07/23/24 08:32 Source: patient, RN notes reviewed and old records reviewed Mode of arrival: ambulatory Limitations: no limitations History of Present Illness HPI Narrative: patient presents with complaints of flu-like symptoms that began 3 days ago. He complains of fever, chills, body aches, runny nose, poor sleep, more tired than usual. He has been taking [id number] medications to manage symptoms, states that these are somewhat helpful. He denies any injury or trauma. While he does endorse cough, he denies any wheezing or shortness of breath. He voices no other concerns or complaints today. Related Data Home Medications ?Medication ?Instructions ?Recorded ?Confirmed ?Last Taken ?Type naproxen 500 mg tablet 500 mg PO BID 05/01/24 06/29/24 05/05/24 History Allergies Allergy/AdvReac Type Severity Reaction Status Date / Time No Known Allergies Allergy Mild Verified 07/23/24 08:33 Review of Systems Review of Systems: All systems reviewed & are unremarkable except as noted in HPI and below Constitutional: Constitutional: Reports no additional constitutional complaints, Reports body ache(s), Reports chills, Reports difficulty sleeping, Reports fever(s), Reports headache(s) and Reports night sweats ENT: Reports system reviewed and no additional complaints, except as documented, Reports nasal congestion and Reports nasal discharge Cardiovascular: Cardiovascular: Reports no additional cardiovascular complaints Respiratory: Respiratory: Reports no additional respiratory complaints and Reports cough Gastrointestinal: Gastrointestinal: Reports no additional gastrointestinal complaints PMFSH Past Medical History Medical History Family history of colon cancer in mother Hyperlipidemia COVID-19 03/09/2022 History of sinus problem Arthritis Carpal tunnel syndrome Surgical History Surgical History H/O repair of right rotator cuff History of repair of left rotator cuff History of carpal tunnel surgery of right wrist History of carpal tunnel surgery of left wrist Family History Family History Father Acute myocardial infarction Hypertension Heart disease Mother Carcinoma of colon Cancer Hypertension Cerebrovascular accident Sibling Diabetes mellitus Hypertension Social History Social History Social History: Caffeine-daily Smoking packs per day: 1 Smoking cigarettes per day: 20.0 Years smoked: 40 Smoking pack-years: 40.00 Smoking status: Former smoker Tobacco type: cigarettes Smoking end date: 12/08/23 Alcohol intake: current Drinks per week: 2 Alcohol use details: weekly Substance use: never Substance use type: does not use Lack of Transportation: No Lack of Food: Never True Current Housing: I Have Housing Concerned About Future Housing: No Difficulty Paying Gas/Electric Bills: No Difficulty Paying for Meds: No Currently Unemployed: No Education: High School Diploma/GED Difficulty w/ Childcare or Family Care: YES Living arrangements: with family Additional living arrangements comments: with sp Gender identity (if verbalized by the patient): Male Comments At the time of my signature, I reviewed and agree with the nursing past medical, surgical, social, and family history. There is no relevant family history pertinent to the patient complaint. Exam Const: General: cooperative, no acute distress, alert and awake Orientation/consciousness: oriented to person, oriented to place and oriented to time HENMT: Head: normal to inspection Ears: TM's normal bilaterally Mouth: Yes moist mucous membranes Throat: posterior oropharynx normal Resp: Effort & Inspection: normal respiratory effort and able to speak in complete sentences Auscultation: clear to auscultation bilaterally, no crackles, no rales, no rhonchi and no wheezes Cardio: Palpation: normal PMI Rate: regular rate Rhythm: regular rhythm Heart sounds: S1 normal heart sound present and S2 normal heart sound present Neuro: General: oriented to person, oriented to place and oriented to time Cranial nerves: Yes CN's II-XII intact bilaterally Psych: Appearance: grossly normal Thought process: Normal thought process present Insight: Good insight present (Psych) Judgement: Good judgement present (Psych) Course Course Level of Care: Express Care Visit Vital Signs Vital signs: Vital Signs Temperature 97.7 F 07/23/24 08:29 Pulse Rate 100 07/23/24 08:29 Respiratory Rate 18 07/23/24 08:29 Blood Pressure 138/88 07/23/24 08:29 Pulse Oximetry 100 07/23/24 08:29 Oxygen Delivery Room Air 07/23/24 08:29 Temperature 97.7 F 07/23/24 08:29 Pulse Rate 100 07/23/24 08:29 Respiratory Rate 18 07/23/24 08:29 Blood Pressure 138/88 07/23/24 08:29 Pulse Oximetry 100 07/23/24 08:29 Oxygen Delivery Room Air 07/23/24 08:29 Reviewed MDM - URI/Sore Throat MDM Narrative Medical decision making narrative: Patient in no distress, nontoxic appearing. He refused testing, but symptoms and exam are consistent with influenza. Patient encouraged to continue supportive care measures at home. Work note provided. Discharge instructions reviewed with patient, as well as provided in writing per nursing staff. The instructions also include specific and strict return/GO TO THE ER as well as f/u information. All questions have been answered, and the patient deny any further questions with discharge and discharge plan. Some parts of this dictation were generated by voice recognition software and may contain typographical and/or grammatical inaccuracies. Differential Diagnosis Differential diagnosis: Likely upper respiratory infection, sinusitis, viral infection and influenza Medical Records Attestation: I reviewed the patient's medical records. Discharge Plan Discharge Clinical Impression: Influenza Patient Disposition: Home, Self-Care Condition: Stable Instructions: Antibiotic Form, Influenza (ED) Additional Instructions: take [id number]-[id number] medications to treat your symptoms as needed. Please follow package instructions. Follow-up with primary care provider. Emergency department for any new or worse symptoms Patient Language: Luxembourgish Prescriptions: No Action naproxen 500 mg tablet 500 mg PO BID atorvastatin 10 mg tablet 10 mg PO QHS Qty: 90 3RF Follow-up/Referrals: Kirill Rogers DO [Primary Care Provider] - 2 Weeks Stand Alone Forms: Work/School Release IP Time of Disposition: 08:40
== END 2024-07-23 08:43 | disposition home or self-care (01) ==
PROVIDERS: Emergency Provider Nurse Practitioner Family; PCP Internal Medicine
DX: J11.1 Influenza due to unidentified influenza virus with other respiratory manifestations (principal); Z87.891 Personal history of nicotine dependence; E78.5 Hyperlipidemia, unspecified; M19.90 Unspecified osteoarthritis, unspecified site; Z86.16 Personal history of COVID-19
CPT/HCPCS: 99211; G0463

== ENCOUNTER 2024-12-24 09:49 | Outpatient (CLI) | payer OTHER, SELFPAY ==
--- NOTE | ~2024-12-24 | CT_ITS ---
CT Scan of the Chest without Contrast: Clinical Indication: Lung cancer screening, nicotine dependence Technique: Contiguous sections were acquired throughout the chest without intravenous contrast. Dose reduction technique was used on this scan by utilizing automated exposure control and iterative recon struction technique. The dose-length product (DLP) was 107.34 mGy-cm. COMPARISON: 12/22/2023 Findings: There is no evidence of any significant mediastinal, hilar or axillary lymphadenopathy. The mediastin al soft tissues appear normal. There is no evidence of pleural or pericardial effusion. Stable subcentimeter pleural-based nodule right lower lobe. Probable minimal emphysema. Images through the upper abdomen reveal no abnormalities. Impression: Lung RADS 2: Benign appearance. 12 month follow-up screening CT advised. Reviewed, dictated and finalized at [facility]. Impression: Lung RADS 2: Benign appearance. 12 month follow-up screening CT advised.
== END 2024-12-24 09:50 | disposition home or self-care (01) ==
LOC: GOSHIMG 09:50
PROVIDERS: PCP Internal Medicine; Visit Provider Nurse Practitioner
DX: Z12.2 Encounter for screening for malignant neoplasm of respiratory organs (principal); Z87.891 Personal history of nicotine dependence
CPT/HCPCS: 71271

== ENCOUNTER 2025-04-09 09:09 | Outpatient (CLI) | payer OTHER, SELFPAY ==
--- OUTSIDE RECORDS SUMMARY | 2025-04-09 10:04 | XMS_ITS | Clinical Summary ---
Author Organization [facility] Address [address] [place] [address] Care Team Providers Care Tape Keller Operator Name Role Phone Kirill Rogers DO Primary Care Provider Allergies No known active allergies Medications nabumetone [...] (01/03/2020): Added automatically from request for surgery [id number] Complete tear of left rotator cuff 12/07/2018 Overview (12/07/2018): Added automatically from request for surgery [id number] Surgical History Surgery Date Site/Laterality Comments CARPAL TUNNEL RELEASE 1989' Bilateral SHOULDER SURGERY 06/27/2018 - 06/26/2019 Left Medical History Medical History Date Comments Arthritis wrists bilateral Social History Tobacco Use Types Packs/Day Years Used Date Smoking Tobacco: Every Day Cigarettes 1 39.8 Started: 1985 Smokeless Tobacco: Never Alcohol Use [...] 62 02/18/2020 10:10 AM CDT Temperature 36.1 C (97 F) 02/18/2020 8:47 AM CDT Respiratory Rate 20 02/18/2020 10:1 0 AM CDT Oxygen Saturation 95% 02/18/2020 10: 10 AM CDT Inhaled Oxygen Concentration - - Weight 87.4 kg (192 lb 11.2 oz) 02/18/2020 5:38 AM CDT Height 182.9 cm (6') 02/18/2020 5:38 AM CDT Body Mass Index 26.13 02/18/2020 5:38 AM CDT Plan of Treatment Not on file Medical Devices Implanted Type Area Allergist Device Identifier Shelf Expiration Date Model / Serial / Lot [employer] Ar-1927bct Corkscrew Suturetape 5.5mm 14.7mm Bioabsorbable Full Thread 1.3mm - S00 - [id number] Implanted:Qty: 1 on 01/01/2019 by Swapnil Rivero MD at [facility] Left: Shoulder [employer] 12/25/2019 AR-1927BCT / 00 / [id number] [employer] Ar-2267 Rod Piler Large Eyelet Pectoralis Button Fixation Latex Free - S00 - [id number] Implanted:Qty: 1 on 01/01/2019 by Swapnil Rivero MD at [facility] [place] Left: Shoulder [employer] 09/25/2023 AR-2267 / 00 / [id number] [employer] Ar-2324 Bcm Swivelock 4.75mm 24.5mm Self Punch Vent Shoulder [place] Suture - S00 - [id number] Implanted:Qty: 1 on 01/01/2019 by Swapnil Rivero MD at [facility] [place] Left: Shoulder [employer] 04/26/2020 AR-2324BCM / 00 / [id number] [employer] Ar-2324 Bcm Swivel[place] 4.75mm 24.5mm Self Punch Vent Shoulder [place] Suture - S00 - [id number] Implanted:Qty: 1 on 01/01/2019 by Swapnil Rivero MD at [facility] [place] Left: Shoulder [employer] 07/27/2020 AR-2324BCM / 00 / [id number] [employer] Ar-2267 Rod Piler Large Eyelet Pectoralis Button Fixation Latex Free - S000 - [id number] Implanted:Qty: 1 on 01/01/2019 by Swapnil Rivero MD at [facility] Left: Shoulder [employer] 09/25/2023 AR-2267 / 000 / [id number] [employer] Ar-2324 Bcm [place]ivel[place] 4.75mm 24.5mm Self Punch Vent Shoulder [place] Suture - [id number] Implanted:Qty: 1 on 02/18/2020 by Swapnil Rivero MD at [facility] [place] Right: Shoulder [employer] 09/25/2023 AR-2324BCM / / [id number] Insurance [facility] Care Teams Tape Keller Operator Relationship Specialty Start Date End Date Kirill Rogers DO PCP - General Internal Medicine 11/06/18
[2025-04-09 12:56] LABS: Hematocrit 47.0 % (42.0-52.0); Hemoglobin 15.2 g/dL (14.0-18.0); Immature Granulocyte Percent A 0.4 % (0-0.5); Lymphocytes Absolute Auto 2.53 K/mm3 (0.9-3.2); Mean Corpuscular HGB Conc 32.3 g/dl (32-36); Mean Corpuscular Hemoglobin 30.9 pg (26-34); Mean Corpuscular Volume 95.5 fl (80-100); Nucleated Red Blood Cells Absolute Auto 0.000 K/mm3 (0.0-0.012); Nucleated Red Blood Cells Perc 0.0 % (0.0-0.2); Platelet Count Result 238 k/mm3 (150-375); Red Blood Count 4.92 M/mm3 (4.6-6.20); White Blood Count 15.8 K/mm3 (4.5-10.0)
[2025-04-09 13:02] LABS: Alanine Aminotransferase 39 U/L (6-50); Albumin Level 4.4 g/dL (3.5-5.1); Alkaline Phosphatase 110 U/L (38-126); Anion Gap 8 mmol/L (4-12); Aspartate Amino Transferase 55 U/L (17-59); Bilirubin,Total 0.5 mg/dL (0.2-1.3); Blood Urea Nitrogen 30 mg/dL (9-20); Calcium 9.6 mg/dL (8.4-10.2); Carbon Dioxide 24 mmol/L (22-30); Chloride 104 mmol/L (98-107); Cholesterol 195 mg/dL (0-200); Estimated Glomerular Filt Rate > 60; Glucose 115 mg/dL (65-110); HDL Direct 39 mg/dL; Potassium 4.2 mmol/L (3.4-5.0); Sodium 136 mmol/L (137-145); Total Protein 7.8 g/dL (6.3-8.2); Triglycerides 144 mg/dL (<150)
[2025-04-09 13:38] LABS: Prostate Specific Antigen 0.4 ng/mL (< OR = 4.0)
[2025-04-09 18:30] LABS: Hemoglobin A1C 5.7 % (<5.7)
== END 2025-04-09 09:10 | disposition home or self-care (01) ==
LOC: ANHGOSHLAB 09:10
PROVIDERS: PCP Internal Medicine; Visit Provider Nurse Practitioner
DX: D72.829 Elevated white blood cell count, unspecified (principal); Z13.29 Encounter for screening for other suspected endocrine disorder; Z12.5 Encounter for screening for malignant neoplasm of prostate; R73.9 Hyperglycemia, unspecified
CPT/HCPCS: 36415; 80053; 80061; 83036; 84153; 85025; G0103

== ENCOUNTER 2025-04-11 14:20 | Outpatient (CLI) | payer OTHER, SELFPAY ==
--- OUTSIDE RECORDS SUMMARY | 2025-04-11 16:26 | XMS_ITS | Clinical Summary ---
Author Organization [facility] Address [address] [place] [address] Care Team Providers Care Video Editing Internship Name Role Phone Kirill Rogers DO Primary [...] (01/03/2020): Added automatically from request for surgery [id number] Complete tear of left rotator cuff 12/07/2018 Overview (12/07/2018): Added automatically from request for surgery [id number] Surgical History Surgery Date Site/Laterality Comments CARPAL [...] on file Medical Devices Implanted Type Area Mathematical Scientist Device Identifier Shelf Expiration Date Model / Serial / Lot [employer] Ar-1927bct Corkscrew Suturetape 5.5mm 14.7mm Bioabsorbable Full Thread 1.3mm - S00 - [id number] Implanted:Qty: 1 on 01/01/2019 by Swapnil Rivero MD at [facility] Left: Shoulder [employer] 12/25/2019 AR-1927BCT / 00 / [id number] [employer] Ar-2267 Electric Sealing Machine Operator Large Eyelet Pectoralis Button Fixation Latex Free - S00 - [id number] Implanted:Qty: 1 on 01/01/2019 by Swapnil Rivero MD at [facility] [place] Left: Shoulder [employer] 09/25/2023 AR-2267 / 00 / [id number] [employer] Ar-2324 Bcm Swivelock 4.75mm 24.5mm Self Punch Vent Shoulder [place] Suture - S00 - [id number] Implanted:Qty: 1 on 01/01/2019 by Swapnil Rivero MD at [facility] [place] Left: Shoulder [employer] 04/26/2020 AR-2324BCM / 00 / [id number] [employer] Ar-2324 Bcm Swivelock 4.75mm 24.5mm Self Punch Vent Shoulder [place] Suture - S00 - [id number] Implanted:Qty: 1 on 01/01/2019 by Swapnil Rivero MD at [facility] [place] Left: Shoulder [employer] 07/27/2020 AR-2324BCM / 00 / [id number] [employer] Ar-2267 Electric Sealing Machine Operator Large Eyelet Pectoralis Button Fixation Latex Free - S000 - [id number] Implanted:Qty: 1 on 01/01/2019 by Swapnil Rivero MD at [facility] Left: Shoulder [employer] 09/25/2023 AR-2267 / 000 / [id number] [employer] Ar-2324 Bcm Swivelock 4.75mm 24.5mm Self Punch Vent Shoulder [place] Suture - [id number] Implanted:Qty: 1 on 02/18/2020 by Swapnil Rivero MD at [facility] [place] Right: Shoulder [employer] 09/25/2023 AR-2324BCM / / [id number] Insurance [facility] Care Teams Video Editing Internship Relationship Specialty Start Date End Date Kirill Rogers DO PCP - General Internal Medicine 11/06/18
[2025-04-11 19:52] LABS: CRP 1.2 mg/dL (<1.0)
[2025-04-12 18:08] LABS: ANA by IFA Rfx Titer/Pattern Negative (.)
== END 2025-04-11 14:21 | disposition home or self-care (01) ==
LOC: ANHGOSHLAB 14:21
PROVIDERS: PCP Internal Medicine; Visit Provider Nurse Practitioner
DX: D72.829 Elevated white blood cell count, unspecified (principal)
CPT/HCPCS: 36415; 85652; 86038; 86140; 86430